=== PATIENT | female | born 1945 | race Caucasian/White ===

== ENCOUNTER → 2023-08-15 16:23 | Outpatient (REF) | payer MEDICARE, OTHER, SELFPAY | LOC: WDC 16:23 | PROVIDERS: ATTENDING PHYSICIAN Obstetrics & Gynecology; FAMILY PHYSICIAN Family Medicine | DX: Z12.31 Encounter for screening mammogram for malignant neoplasm of breast (principal) | CPT/HCPCS: 77063; 77067 ==

== ENCOUNTER 2023-09-26 06:23 | Day surgery (SDC) | payer MEDICARE, OTHER, SELFPAY ==
--- NOTE | 2023-08-22 13:07 | CM ---
Addendum entered by Lillian Frazier 09/24/23 12:20:
Per Pam navigator, patient will benefit from home PT. Spoke with patient who is in agreement. She will be staying with her friend in [place] until Sunday and will then return to her home where her niece will stay with her for the weekend.
Discussed recommendation for home PT, patient is in agreement. Options/PAC data reviewed; she selects [facility] and requests start of care on Sunday, 09/28.
Original Note:
Patient is scheduled for lumbar spine surgery on 09/26/23. Spoke with patient prior to surgery via telephone. Introduced role of the Orthopedic Navigator. Patient reports that she lives alone in a two story home. There is a flight of steps to the
second floor. She currently functions independently and occasionally uses a cane. She has no other DME and has never had VN services. PCP is Maribel Umaña.
Discussed orthopedic program, post surgical plans and tentative plan for patient to return home when directed by surgeon. Patient is in agreement with tentative plan and will be going to a friend's home for a few days (her friend's home is one
floor with one step to enter).
Per surgical reservation sheet from Dr. Merrill's office, patient does not need a brace.
Plan: Orthopedic Navigator will remain available to assist with the care of patient and will reassess discharge needs after surgery.
[2023-09-07 12:14] VITALS: BMI 20.9
[2023-09-07 13:56] LABS: Hematocrit 32.3 % (37.0-47.0); Hemoglobin 11.4 g/dL (12.0-16.0); Mean Corp Hgb Conc. 35.3 g/dL (33.0-37.0); Mean Corpuscular Hgb 32.9 pg (27.0-31.0); Mean Corpuscular Volume 93.1 fL (81.0-99.0); Mean Platelet Volume 10.8 fL (7.4-10.4); Platelet Count 259 10^3/uL (130-400); Red Blood Cell Count 3.47 10^6/uL (4.20-5.40); Red Cell Dist. Width 11.6 % (11.5-14.5); White Blood Cell Count 5.5 10^3/uL (4.8-10.8)
[2023-09-07 13:59] VITALS: BMI 20.9
[2023-09-07 14:23] LABS: ALT (SGPT) 19 U/L (0-35); AST (SGOT) 30 U/L (14-36); Albumin 4.5 g/dl (3.5-5.0); Alkaline Phosphatase 46 U/L (38-126); Blood Urea Nitrogen 14 mg/dl (7-17); Carbon Dioxide 28 mmol/L (22-30); Chloride 95 mmol/L (98-107); Estimated Creatinine Clearance 44 ml/min; Glucose 86 mg/dl (70-99); Potassium 4.2 mmol/L (3.5-5.1); Sodium 132 mmol/L (135-145); Total Bilirubin 0.6 mg/dl (0.2-1.3); Total Protein 6.7 g/dl (6.3-8.2); eGFR > 60.00
[2023-09-26] VITALS (15 sets, daily range): BP systolic 100–125; BP diastolic 46–61; BMI 20.9
[2023-09-26] MEDS: CELEBREX 200 MG PO (10:06)
[2023-09-26] MEDS: SKELAXIN 800 MG PO (10:06)
[2023-09-26] MEDS: TYLENOL 1000 MG PO ×3 (10:06→21:54)
[2023-09-26] MEDS: LYRICA 150 MG PO (10:06)
[2023-09-26] MEDS: NORMOSOL-R 1000 IV (10:07)
[2023-09-26] MEDS: DILAUDID 0.25 MG IV ×2 (13:43→15:28)
[2023-09-26] MEDS: NSS 1000 IV ×2 (14:16→23:12)
--- NOTE | 2023-09-26 14:32 | W.PN.UPDATE ---
Update Note
Progress Note Update
Lumbar stenosis with neurogenic claudication s/p R L3-L4 hemilaminectomy w/ Dr. Merrill 09/26/23
DVT prophylaxis - b/l SCDs/TEDs
Hypertension secondary to hyperaldosteronism - + parameters - monitor BP
PAF, status post pulmonary vein isolation 2013 - monitor on tele
- Resume oral anticoagulation with Eliquis POD 5 if hemodynamically stable
Chronic diarrhea - Colace ONLY initially for post-surgical bowel regimen
Mild cognitive deficits per records - minimize opioids as able
Mild anemia - H&H in AM
Chronic mild hyponatremia, on fluid restriction - continue 50 oz fluid restriction as advised by nephrology
- NSS running
- BMP in AM
Mild scoliosis
Hyperlipidemia
Mild to moderate mitral regurgitation
Mild tricuspid regurgitation
Colon polyps
Diverticulosis
Hemorrhoids with previous rectal bleeding
Osteoarthritis, status post right total knee arthroplasty, 10/2020, by Dr. Cj Person
Left breast cancer, 1995, status post left mastectomy with axillary lymph node dissection and chemotherapy
Glaucoma
Osteoporosis
Insomnia
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
Hearing impairment bilaterally
History of hypokalemia
Mild hypercalcemia
Remote history of tobacco abuse
Cannabis dependence
[2023-09-26] MEDS: ULTRAM 50 MG PO ×2 (16:54→21:54)
--- NOTE | 2023-09-26 18:52 | SUR.PHASEI ---
Patient remains in PACU, stable and comfortable. VSS. excellent movement and repositioning. Dede Plummer RN BSN.
--- NOTE | 2023-09-26 19:15 | PTCARENOTE ---
Patient arrived from PACU @19:00, VSS, Left Limb Alert bracelet intact d/t history of breast cancer; admission history obtained at bedside; patient does not have back brace with her, but stated her friend will bring it tomorrow, explanation provided
that back brace will be needed for PT; bedside commode placed right next to bed since back brace not available when OOB, printed 'Lumbar Spine Surgery Discharge Instruction Sheet (Dr. Merrill)' provided and 'physical activity' explained.
[2023-09-26] MEDS: FLORASTOR 250 MG PO (20:57)
[2023-09-26] MEDS: ANCEF 5 IV (20:57)
[2023-09-26] MEDS: COLACE 100 MG PO (20:57)
[2023-09-26] MEDS: LIPITOR 40 MG PO (21:54)
[2023-09-26] MEDS: LYRICA 75 MG PO (21:54)
[2023-09-27 03:20] VITALS: BP 108/55
[2023-09-27] MEDS: ULTRAM 50 MG PO (04:01)
[2023-09-27] MEDS: ANCEF 5 IV (04:01)
[2023-09-27] MEDS: TYLENOL 1000 MG PO ×2 (04:01→10:49)
[2023-09-27 06:04] LABS: Hematocrit 30.9 % (37.0-47.0); Hemoglobin 10.5 g/dL (12.0-16.0)
[2023-09-27 06:30] LABS: Blood Urea Nitrogen 12 mg/dl (7-17); Calcium 8.6 mg/dl (8.4-10.2); Carbon Dioxide 21 mmol/L (22-30); Chloride 108 mmol/L (98-107); Estimated Creatinine Clearance 59 ml/min; Glucose 92 mg/dl (70-99); Potassium 4.5 mmol/L (3.5-5.1); Sodium 138 mmol/L (135-145); eGFR > 60.00
[2023-09-27 07:05] VITALS: BP 136/65
[2023-09-27] MEDS: FLORASTOR 250 MG PO (08:05)
[2023-09-27] MEDS: COLACE 100 MG PO (08:07)
--- NOTE | 2023-09-27 08:40 | CM ---
Addendum entered by Lillian Frazier 09/27/23 12:10:
Patient did well with therapy and has no concerns about discharge. She has updated her friend.
Original Note:
Reviewed chart and held rounds with PT, OT and RN. Patient had planned lumbar spine surgery with Dr. Merrill on 09/25. Met with patient at bedside. Confirmed information previously obtained for assessment and discussed discharge plans. Patient continues
to plan to go to her friend's home until tomorrow. She will then return home and her niece3 will stay with her for a few days. Reviewed home PT, including start of care (09/28 per patient's request) and frequency of services. She expressed
understanding and continues to select [facility].
Patient has a cane.
Patient will use [facility] pharmacy for discharge prescriptions.
[2023-09-27 10:20] VITALS: BP 131/75; PULSE 92; O2SAT 95
[2023-09-27] MEDS: LYRICA 75 MG PO (10:49)
[2023-09-27] MEDS: ULTRAM PO (10:50)
[2023-09-27 11:13] VITALS: BP 119/56
[2023-09-27 11:55] VITALS: BP 118/68; PULSE 68; O2SAT 95
--- NOTE | 2023-09-27 12:16 | W.PN.ORTHO ---
Today's Communication / Plan
-
D/c today since clinically stable, did well w/ both PT and OT.
Assessment
.
Distal Motor Intact: Yes
Dressing:
Clean, dry and intact.
Assessment:
Lumbar stenosis with neurogenic claudication s/p R L3-L4 hemilaminectomy w/ Dr. Merrill 09/26/23
DVT prophylaxis - b/l SCDs/TEDs
Hypertension secondary to hyperaldosteronism - + parameters - BPs stable
PAF, status post pulmonary vein isolation 2013 - maintaining NSR on tele
- Resume oral anticoagulation with Eliquis POD 5 since hemodynamically stable
Chronic diarrhea - Colace ONLY initially for post-surgical bowel regimen
Mild cognitive deficits per records - continue to minimize opioids as able
Mild anemia - hgb 11.4 pre-op -> 10.6 post-op
- Asymptomatic, hemodynamically stable
Chronic mild hyponatremia, on fluid restriction - continue 50 oz fluid restriction as advised by nephrology
- s/p NSS
- Sodium WNL POD 1
Mild scoliosis
Hyperlipidemia
Mild to moderate mitral regurgitation
Mild tricuspid regurgitation
Colon polyps
Diverticulosis
Hemorrhoids with previous rectal bleeding
Osteoarthritis, status post right total knee arthroplasty, 10/2020, by Dr. Cj Person
Left breast cancer, 1995, status post left mastectomy with axillary lymph node dissection and chemotherapy
Glaucoma
Osteoporosis
Insomnia
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
Hearing impairment bilaterally
History of hypokalemia
Mild hypercalcemia
Remote history of tobacco abuse
Cannabis dependence
Plan
.
Surgery / Date: R L3-L4 hemilaminectomy w/ Dr. Merrill 09/26/23
DVT Prophylaxis: Other (b/l SCDs/TEDs)
Activity:
Out of bed.
PT/OT
Discharge Plan: Home (w/ home PT )
Subjective
.
.:
Patient resting comfortably in bed this AM.
Feels 'great'. Low back pain pretty minimal.
Denies any other new significant complaints.
Eager for potential d/c today.
Vital Signs and Labs
.
Vital Signs and Labs:
Lab Results
09/27/23 04:34
09/27/23 04:34
Temp Pulse Resp BP Pulse Ox
97.5 F 72 18 119/56 100
09/27/23 11:13 09/27/23 11:13 09/27/23 11:13 09/27/23 11:13 09/27/23 11:13
Physical Exam
-
HEENT: No pallor, cyanosis, or jaundice. Throat clear.
NECK: Supple. No JVD.
RESPIRATORY: Lungs clear to auscultation.
CVS: S1, S2 normal. RRR.
ABDOMEN: Soft, non-tender. No distension.
EXTREMITIES: Strength equal, no calf pain with palpation/dorsiflexion. Calves soft.
ENVIRONMENTAL PLANNER: AOx3. network operations center technician grossly intact
--- NOTE | 2023-09-27 12:30 | W.DS.TRANS ---
DC Summary - Cost Report Clerk
-
Discharge Instructions:
Sleep Apnea Risk Low
Discharge Diagnosis/Procedures Lumbar stenosis with neurogenic claudication s/p
R L3-L4 hemilaminectomy w/ Merrill 09/26/23
Diet Regular
Additional Diets Restrict fluids to 50 oz daily per Nephrology
Activity As tolerated
Additional Activity No heavy lifting >10 lbs
Driving Restrictions Not until seen by your Dr
Bathing Restrictions OK to shower in 4 days
Other Services PT
Instructions:
Stand-Alone Forms: [facility] Lumbar D/C Inst.
Changes to Home Medications: Yes
Discharge Medications:
DC Medications w/original date entered in [facility]
Fish Oil 1 cap PO BID 09/03/23
Medical Marijuana 1 dose inhalation HS PRN sleep 09/03/23
apixaban 5 mg tablet (Eliquis) 5 mg PO BID 09/03/23
atorvastatin 40 mg tablet 40 mg PO HS 09/03/23
denosumab 60 mg/mL subcutaneous syringe (Prolia) 60 mg SC [id number] 09/03/23
Saccharomyces boulardii 250 mg capsule 250 mg PO BID #10 caps 09/27/23
acetaminophen 500 mg tablet (Tylenol Extra Strength) 1,000 mg (2 x 500 mg) PO Q6H #60 tabs 09/27/23
clindamycin HCl 300 mg capsule 300 mg PO Q6H #20 caps 09/27/23
docusate sodium 100 mg capsule 100 mg PO BID #30 caps 09/27/23
ondansetron HCl 4 mg tablet 4 mg PO Q6H PRN nausea and vomiting #30 tabs 09/27/23
oxycodone 5 mg tablet 5 - 10 mg (1 - 2 x 5 mg) PO Q6H PRN moderate-severe pain #30 tabs 09/27/23
pregabalin 75 mg capsule 75 mg PO BID neuropathic pain #15 caps 09/27/23
sennosides 8.6 mg tablet (Senna Laxative) 17.2 mg (2 x 8.6 mg) PO BIDPRN PRN constipation #30 tabs 09/27/23
spironolactone 25 mg tablet 25 mg PO BID #0 tabs 09/27/23
Home Medication Changes
Saccharomyces boulardii 250 mg capsule 250 mg PO BID #10 caps 09/27/23
acetaminophen 500 mg tablet (Tylenol Extra Strength) 1,000 mg (2 x 500 mg) PO Q6H #60 tabs 09/27/23
clindamycin HCl 300 mg capsule 300 mg PO Q6H #20 caps 09/27/23
docusate sodium 100 mg capsule 100 mg PO BID #30 caps 09/27/23
ondansetron HCl 4 mg tablet 4 mg PO Q6H PRN nausea and vomiting #30 tabs 09/27/23
oxycodone 5 mg tablet 5 - 10 mg (1 - 2 x 5 mg) PO Q6H PRN moderate-severe pain #30 tabs 09/27/23
pregabalin 75 mg capsule 75 mg PO BID neuropathic pain #15 caps 09/27/23
sennosides 8.6 mg tablet (Senna Laxative) 17.2 mg (2 x 8.6 mg) PO BIDPRN PRN constipation #30 tabs 09/27/23
Pending Results: No
== END 2023-09-27 14:05 | disposition home or self-care (01) ==
LOC: SDS 06:23
PROVIDERS: Physician Assistant; ATTENDING PHYSICIAN Orthopaedic Surgery Orthopaedic Surgery of the Spine; FAMILY PHYSICIAN Family Medicine; OTHER PHYSICIAN Internal Medicine; OTHER PHYSICIAN Internal Medicine Cardiovascular Disease; OTHER PHYSICIAN Internal Medicine Rheumatology
DX: M48.062 Spinal stenosis, lumbar region with neurogenic claudication (principal); M41.9 Scoliosis, unspecified
CPT/HCPCS: 63047; 36415; 72020; 80048; 80053; 85014; 85018; 85027; 86850; 86900; 86901; 87070; 97161; 97165; 97535

== ENCOUNTER → 2024-08-14 16:48 | Outpatient (REF) | payer MEDICARE, OTHER, SELFPAY | LOC: WDC 16:48 | PROVIDERS: ATTENDING PHYSICIAN Obstetrics & Gynecology; FAMILY PHYSICIAN Family Medicine | DX: Z12.31 Encounter for screening mammogram for malignant neoplasm of breast (principal) | CPT/HCPCS: 77063; 77067 ==

== ENCOUNTER → 2025-02-24 09:36 | Outpatient (REF) | payer MEDICARE, OTHER, SELFPAY | LOC: HWRAD 09:36 | PROVIDERS: ATTENDING PHYSICIAN Internal Medicine Rheumatology; FAMILY PHYSICIAN Family Medicine | DX: M81.0 Age-related osteoporosis without current pathological fracture (principal) | CPT/HCPCS: 77080 ==